=== PATIENT | male | born 1945 | race Caucasian/White ===

== ENCOUNTER 2022-08-04 15:43 | Emergency (ER) | payer OTHER ==
[2022-08-04 16:21] LABS: Absolute Lymphocytes (CBC) 0.6 K/uL (0.7-4.9); Hematocrit 31.3 % (39.6-49.0); Lymphocytes % 13.4 % (15.3-44.8); MCV 83.6 fL (80-100); MPV 6.2 fL (7.6-11.3); RBC Red Blood Cell Count 3.75 M/uL (4.33-5.43)
[2022-08-04 16:24] LABS: Protime INR 1.2
[2022-08-04 16:55] LABS: Albumin 2.7 g/dL (3.4-5.0); Bilirubin Direct 0.2 mg/dL (0-0.2); Bilirubin Total 0.4 mg/dL (0.2-1.0); Protein, Total 6.9 g/dL (6.4-8.2)
[2022-08-04 17:00] LABS: Potassium 3.7 mmol/L (3.5-5.1); Troponin High Sensitivity 5.2 pg/mL (<58.9)
--- NOTE | 2022-08-04 17:12 | RAD REPORT ---
EXAM DESCRIPTION: RAD - Chest Single View - 08/04/2022 4:59 pm CLINICAL HISTORY: CHEST PAIN COMPARISON: Two view chest April 2011 TECHNIQUE: AP portable chest image was obtained 08/04/2022 4:59 pm . FINDINGS: Large mass density fills the right apex. There is elevation of the right hemidiaphragm. Ro unded mass density in the mid right chest has a central lucency that could be cavitary or necrotic ti ssue. Snow finding could be mass density or entrapped typical fluid. Findings are concerning for adi gnant process. This would be an atypical simple pneumonia presentation. Underlying fibrotic lung changes are present. Left lung field and lower right lung field are clear. Failure and volume overload are not suspected. Heart and vasculature are normal. No pneumothorax or l marcio base pleural effusion. Posterior right fifth rib is not well defined but this may be due to the d ensity of the right apex process. No acute aortic findings suspected. IMPRESSION: Mid and right upper lung field mass densities are present concerning for malignancy rath er than simple pneumonia. Follow-up contrast-enhanced CT chest imaging is recommended.
--- NOTE | 2022-08-04 18:25 | RAD REPORT ---
EXAM DESCRIPTION: CT - Chest Abdomen Pelvis W Cont - 08/04/2022 5:59 pm CLINICAL HISTORY: chest pain, abdominal pain COMPARISON: Chest Single View dated 08/04/2022 TECHNIQUE: Following dynamic enhancement using 100 milliliters nonionic IV contrast, axial imaging o f the chest, abdomen and pelvis was performed. Biphasic technique was utilized through the abdomen. No oral contrast was administered. All CT scans are performed using dose optimization technique as appropriate and may include automated exposure control or mA/KV adjustment according to patient size. FINDINGS: A large 10-12 centimeter sized malignant mass fills the right upper lobe. Portions of the right upper lobe that are not actual tumor mass represent alveolar opacification from fluid or possib ly additional tumor. Right upper lobe bronchus is occluded. In the mid right lung field a 9 x 7 centi meter extension of the right upper lobe malignancy is present with central necrotic cavity. An air-fl uid level is present within the cavity. The mass surrounds the right mainstem bronchus and right pulmonary artery. Tumor extends into the med iastinum. There are multiple abnormal mediastinal lymph nodes. In the posterior upper chest the mass invades the chest wall with bone destructive changes in the posterior right fifth rib and the right p osterior body, pedicle and transverse process of T5. No tumor extension into the central canal identi fiable. No metastatic pulmonary nodules present. No pleural effusion, pleural thickening or pneumothorax. No acute aortic finding. No pulmonary artery occlusion or embolus. The contralateral left hilar lymphade nopathy. No axillary lymphadenopathy. No liver or adrenal metastatic disease. Spleen, pancreas, gallbladder and biliary tree show no suspicious findings. Symmetric renal function is seen with no mass or hydronephrosis. No stomach or small bowel abnormality. The ileocecal valve is normal in appearance. There is left-jeremy ed sigmoid diverticulosis without diverticulitis. Moderately large stool volume fills the colon from cecum to mid descending colon. The tip of the cecum has a thickened nodular and lobulated soft tissue appearance is not typical for stool. Findings are concerning for a malignancy in the tip of the cecu m. No abnormal adjacent lymphadenopathy. Degenerative changes are present but no additional pathologic bone changes identifiable. An infrarenal abdominal aortic aneurysm is present 4.6 cm AP x 4.4 cm TR. Mural thrombus is seen candace g the left lateral aspect of the aneurysm occupying approximately 1/3 of the volume. No centrally dis placed calcifications. An acute aortic process is not seen. IMPRESSION: Very large malignant mass filling the mid and upper right hemithorax with mediastinal an d posterior chest wall invasion. Inferior aspect of the mass has a large cavitary component. Chest wall invasion causes bone destructi on in the posterior right fifth rib as well as the right posterior body, pedicle and transverse proce ss of T5. Thickened irregular nodular soft tissue in the cecum suspicious for colon malignancy. No liver or adrenal metastatic disease. No additional pulmonary masses. No abdominal lymphadenopathy, omental thickening or other findings of carcinomatosis.
--- NOTE | 2022-08-04 20:34 | EDPHYS ---
Physician Documentation [facility] Name: Gene Fontanez Age: 76 yrs Sex: Male : 1945 Arrival Date: 08/04/2022 Time: 15:47 Bed 24 Private MD: ED Physician Lloyd Fish HPI: 08/04 16:02 This 76 yrs old Male presents to ER via EMS with complaints of Chest Pain. cp 16:02 The patient or guardian reports chest pain that is located primarily in the anterior cp chest wall, bilaterally. 16:02 Onset: 10 day(s) ago. cp 16:02 Duration: The patient or guardian reports multiple episodes, that wax and wane. cp 16:02 Associated signs and symptoms: Pertinent positives: shortness of breath, approximate cp 100 lb weight loss since beginning of this year, Pertinent negatives: diaphoresis, lower extremity pain, lower extremity swelling, syncope, fever. 16:02 The chest pain is described as intermittent, sharp. cp Historical: - Allergies: 15:48 No Known Allergies; ld1 - PMHx: 15:48 None; ld1 - PSHx: 15:48 None; ld1 - Immunization history:: Adult Immunizations up to date, Client reports receiving the 2nd dose of the Covid vaccine. - Social history:: Smoking status: Patient denies any tobacco usage or history of. Patient/guardian denies using alcohol. ROS: 16:02 Constitutional: Negative for body aches, chills, fever, poor PO intake. cp 16:02 Cardiovascular: Positive for chest pain, Negative for palpitations. cp 16:02 Respiratory: Positive for shortness of breath. 16:02 Abdomen/GI: Positive for abdominal pain, of the epigastric area. cp 16:02 Eyes: Negative for injury, pain, redness, and discharge. cp 16:02 ENT: Negative for drainage from ear(s), ear pain, sore throat, difficulty swallowing, difficulty handling secretions. 16:02 Neuro: Negative for altered mental status, headache, numbness, weakness. cp 16:02 All other systems are negative. Exam: 16:02 ECG was reviewed by the Attending Physician. cp 16:07 Constitutional: The patient appears in no acute distress, alert, awake, cp non-diaphoretic, non-toxic, well developed, well nourished. 16:07 Head/Face: Normocephalic, atraumatic. cp 16:07 Eyes: Periorbital structures: appear normal, Conjunctiva: normal, no exudate, no injection, Sclera: no appreciated abnormality, Lids and lashes: appear normal, bilaterally. 16:07 ENT: External ear(s): are unremarkable, Nose: is normal, Mouth: Lips: moist, Oral mucosa: pink and intact, moist, Posterior pharynx: Airway: no evidence of obstruction, patent. 16:07 Neck: ROM/movement: is normal, is supple, without pain, no range of motions limitations. 16:07 Chest/axilla: Inspection: normal, Palpation: is normal, no crepitus, no tenderness. 16:07 Cardiovascular: Rate: normal, Rhythm: regular, Pulses: Pulses are 2+ in right radial artery and left radial artery. Edema: is not appreciated, JVD: is not appreciated. 16:07 Respiratory: the patient does not display signs of respiratory distress, Respirations: normal, no use of accessory muscles, no retractions, labored breathing, is not present, Breath sounds: decreased breath sounds, that are moderate, are heard in the right posterior upper lobe, stridor, is not appreciated, wheezing: is not appreciated. 16:07 Abdomen/GI: Inspection: abdomen appears normal, Bowel sounds: active, all quadrants, Palpation: abdomen is soft and non-tender, in all quadrants. 16:07 Back: pain, that is mild, ROM is normal. 16:07 Skin: cellulitis, is not appreciated, no rash present. 16:07 Neuro: Orientation: to person, place \\T\\ time. Mentation: is normal, Motor: moves all fours, strength is normal, Sensation: is normal. Vital Signs: 15:47 Weight 68.04 kg; Height 6 ft. 2 in. (187.96 cm); Pain 0/10; ld1 16:09 BP 111 / 64; Pulse 88; Resp 27; Pulse Ox 95% on R/A; ld1 16:53 BP 113 / 50; Pulse 94; Resp 30; Pulse Ox 98% on R/A; ld1 17:57 BP 131 / 88; Pulse 95; Resp 23; Pulse Ox 98% on R/A; ld1 18:41 BP 128 / 68; Pulse 88; Resp 22; Pulse Ox 100% ; ld1 20:52 BP 116 / 55; Pulse 100; Resp 22 S; Pulse Ox 100% on R/A; bb 15:47 Body Mass Index 19.26 (68.04 kg, 187.96 cm) ld1 MDM: 15:58 Patient medically screened. cp 16:00 Differential diagnosis: acute myocardial infarction, acute pericarditis, chest wall cp pain, pleurisy, pneumonia, pneumothorax, pulmonary embolus, stable angina, thoracic aortic disection, unstable angina, lung carcinoma. 20:11 Data reviewed: vital signs, nurses notes, lab test result(s), EKG, radiologic studies, cp CT scan, plain films. Physician consultation: Geraldo Duque MD was called at 20:12, was contacted at 20:12, regarding patient's condition, and will see patient in office. 20:30 ED course: VSS. Pain improved. Patient appears non-toxic and no signs of respiratory cp distress. Will discharge to home for continued monitoring. 08/04 15:49 Order name: Basic Metabolic Panel; Complete Time: 17:01 [facility] 08/04 17:01 Interpretation: Normal except: CL 110; BUN 19. cp 08/04 15:49 Order name: CBC with Diff; Complete Time: 16:30 [facility] 08/04 16:31 Interpretation: Normal except: RBC 3.75; HGB 10.3; HCT 31.3; RDW 17.3; MPV 6.2; RIRI% cp 75.5; LYM% 13.4; LYMA 0.6. 08/04 15:49 Order name: Troponin HS; Complete Time: 17:01 [facility] 08/04 16:00 Order name: BNP; Complete Time: 17:01 08/04 17:01 Interpretation: Abnormal: NT PRO-BNP 683. cp 08/04 16:00 Order name: LFT's; Complete Time: 17:01 08/04 16:00 Order name: Lipase; Complete Time: 17:01 08/04 15:49 Order name: XRAY Chest (1 view); Complete Time: 17:14 [facility] 08/04 15:49 Order name: EKG; Complete Time: 15:50 [facility] 08/04 15:49 Order name: Cardiac monitoring; Complete Time: 16:09 [facility] 08/04 16:00 Order name: PT-INR; Complete Time: 16:30 cp 08/04 16:00 Order name: Ptt, Activated; Complete Time: 16:30 cp 08/04 17:33 Order name: Chest Abdomen Pelvis W Cont; Complete Time: 18:30 EDMS 08/04 18:33 Interpretation: Report reviewed. cp 08/04 19:09 Order name: COVID-19 SARS RT PCR (Document "Date of Onset" if Symptomatic); Complete bb Time: 20:08/04 15:49 Order name: EKG - Nurse/Tech; Complete Time: 16: ld1 08/04 15:49 Order name: IV Saline Lock; Complete Time: 16: ld1 08/04 15:49 Order name: Labs collected and sent; Complete Time: 16: ld08/04 15:49 Order name: O2 Per Protocol; Complete Time: 16: ld08/04 15:49 Order name: O2 Sat Monitoring; Complete Time: 16: ld EC:02 Rate is 90 beats/min. Rhythm is regular. WA interval is normal. QRS interval is normal. cp QT interval is normal. T waves are Inverted in leads aVL, aVR. Interpreted by me. Reviewed by me. Administered Medications: No medications were administered Disposition: 08/05 08:45 Co-signature as Attending Physician, Lloyd Fish DO I was immediately available on-site ms3 in the Emergency Department for consultation in the care of the patient. . Disposition Summary: 08/04/22 20:34 Discharge Ordered Location: Home cp Problem: new cp Symptoms: have improved cp Condition: Stable cp Diagnosis - Malignant neoplasm of unspecified part of right bronchus or lung cp - Malignant neoplasm of colon, unspecified cp Followup: cp - With: Geraldo Duque MD - When: 1 - 2 days - Reason: lung mass Followup: cp - With: Jaime Garcia MD - When: 2 - 3 days - Reason: colon mass Discharge Instructions: - Discharge Summary Sheet cp - Colonoscopy, Adult cp - Colorectal Cancer cp - Lung Cancer cp Forms: - Medication Reconciliation Form cp - Thank You Letter cp - Antibiotic Education cp - Prescription Opioid Use cp Signatures: Dispatcher [employer] EDMS Ezra Gill PA PA cp Sims, Marcus, DO DO ms3 Bailey Carrera RN RN ld1 Corrections: (The following items were deleted from the chart) 20:51 08/04 20:12 ED course: VSS. Pain improved. Patient appears non-toxic and no signs of cp respiratory distress. Will discharge to home for continued monitoring. cp
--- NOTE | 2022-08-04 20:34 | ER ---
Nurse's Notes [facility] Name: Gene Fontanez Age: 76 yrs Sex: Male : 1945 Arrival Date: 08/04/2022 Time: 15:47 Bed 24 Private MD: Diagnosis: Malignant neoplasm of unspecified part of right bronchus or lung;Malignant neoplasm of colon, unspecified Presentation: 08/04 15:47 Chief complaint: Patient states: Chest pain on and off for 10 days. Denies chest pain ld1 upon arrival. Coronavirus screen: At this time, the client does not indicate any symptoms associated with coronavirus-19. Ebola Screen: No symptoms or risks identified at this time. Initial Sepsis Screen: Does the patient meet any 2 criteria? No. Patient's initial sepsis screen is negative. Does the patient have a suspected source of infection? No. Patient's initial sepsis screen is negative. Risk Assessment: Do you want to hurt yourself or someone else? Patient reports no desire to harm self or others. Onset of symptoms was August 04, 2022. 15:47 Method Of Arrival: EMS: [facility] ld1 15:47 Acuity: ABHILASH 3 ld1 Triage Assessment: 15:48 General: Appears in no apparent distress. comfortable, Behavior is calm, cooperative, ld1 appropriate for age. Pain: Complains of pain in chest Pain does not radiate. Pain currently is 0 out of 10 on a pain scale. at worst was 8 out of 10 on a pain scale. Quality of pain is described as throbbing. EENT: No signs and/or symptoms were reported regarding the EENT system. Neuro: Level of Consciousness is awake, alert, obeys commands, Oriented to person, place, time, situation. Cardiovascular: Capillary refill < 3 seconds Patient's skin is warm and dry. Respiratory: Airway is patent Respiratory effort is even, unlabored. GI: Abdomen is flat, non-distended. : No signs and/or symptoms were reported regarding the genitourinary system. Derm: No signs and/or symptoms reported regarding the dermatologic system. Musculoskeletal: No signs and/or symptoms reported regarding the musculoskeletal system. Historical: - Allergies: 15:48 No Known Allergies; ld1 - PMHx: 15:48 None; ld1 - PSHx: 15:48 None; ld1 - Immunization history:: Adult Immunizations up to date, Client reports receiving the 2nd dose of the Covid vaccine. - Social history:: Smoking status: Patient denies any tobacco usage or history of. Patient/guardian denies using alcohol. Screenin:10 Abuse screen: Denies threats or abuse. Denies injuries from another. Nutritional ld1 screening: No deficits noted. Tuberculosis screening: No symptoms or risk factors identified. Fall Risk None identified. Assessment: 16:09 Reassessment: See triage assessment. ld1 17:57 Reassessment: Patient appears in no apparent distress at this time. Patient and/or ld1 family updated on plan of care and expected duration. Pain level reassessed. Patient is alert, oriented x 3, equal unlabored respirations, skin warm/dry/pink. 20:51 Reassessment: Patient is alert, oriented x 3, equal unlabored respirations, skin bb warm/dry/pink. pt verbalized understanding of and agrees to plan of care discharge instructions given to pt and family. Vital Signs: 15:47 Weight 68.04 kg; Height 6 ft. 2 in. (187.96 cm); Pain 0/10; ld1 16:09 BP 111 / 64; Pulse 88; Resp 27; Pulse Ox 95% on R/A; ld1 16:53 BP 113 / 50; Pulse 94; Resp 30; Pulse Ox 98% on R/A; ld1 17:57 BP 131 / 88; Pulse 95; Resp 23; Pulse Ox 98% on R/A; ld1 18:41 BP 128 / 68; Pulse 88; Resp 22; Pulse Ox 100% ; ld1 20:52 BP 116 / 55; Pulse 100; Resp 22 S; Pulse Ox 100% on R/A; bb 15:47 Body Mass Index 19.26 (68.04 kg, 187.96 cm) ld1 ED Course: 15:47 Patient arrived in ED. ld1 15:48 Triage completed. ld1 15:48 Arm band placed on right wrist. ld1 15:52 Ezra Gill PA is PHCP. cp 15:52 Lloyd Fish DO is Attending Physician. cp 16:09 No provider procedures requiring assistance completed. Maintain EMS IV. Dressing ld1 intact. Good blood return noted. Site clean \T\ dry. Gauge \T\ site: 20G RFA. 16:10 Patient has correct armband on for positive identification. Placed in gown. Bed in low ld1 position. Call light in reach. Side rails up X2. Client placed on continuous cardiac and pulse oximetry monitoring. NIBP monitoring applied. cardiac monitor technician on. Pulse ox on. NIBP on. Door closed. Noise minimized. Warm blanket given. 16:10 Patient maintains SpO2 saturation greater than 95% on room air. ld1 16:53 Bailey Carrera, RN is Primary Nurse. ld1 17:01 XRAY Chest (1 view) In Process Unspecified. EDMS 18:01 Chest Abdomen Pelvis W Cont In Process Unspecified. EDMS 20:32 Geraldo Duque MD is Referral Physician. cp 20:37 Jaime Garcia MD is Referral Physician. cp 20:53 IV discontinued, intact, bleeding controlled, No redness/swelling at site. Pressure bb dressing applied. Administered Medications: No medications were administered Medication: 16:10 VIS not applicable for this client. ld1 Outcome: 20:34 Discharge ordered by MD. cp 20:52 Discharged to home ambulatory, with family. bb 20:52 Condition: stable 20:52 Discharge instructions given to patient, family, Instructed on discharge instructions, follow up and referral plans. Demonstrated understanding of instructions, follow-up care. 20:53 Patient left the ED. bb Signatures: Dispatcher [employer] Светлана Naranjo RN RN Ezra Webber PA PA Bailey Couch, RN RN ld1
--- NOTE | 2022-08-06 13:11 | EKG ---
Test Date: 2022-08-04 Test Time: 15:55:02 Corporation Lawyer: TAMMY MEASUREMENT RESULTS: Intervals: Rate: 90 NM: 174 QRSD: 86 QT: 360 QTc: 440 [place]line: P: 81 NM: 174 QRS: 85 T: 77 INTERPRETIVE STATEMENTS: Normal sinus rhythm Right atrial enlargement Borderline ECG No previous ECG available for comparison Electronically Signed On 08-06-22 13:06:27 CDT by Israel Vazquez
[2022-08-07 13:16] VITALS: O2SAT 100
[2022-08-07 13:18] VITALS: BP 116/55
== END 2022-08-04 20:53 | disposition home or self-care (01) ==
LOC: ER 15:43
DX: C34.91 Malignant neoplasm of unspecified part of right bronchus or lung (principal); C18.9 Malignant neoplasm of colon, unspecified; Z20.822 Contact with and (suspected) exposure to COVID-19
CPT/HCPCS: 93005; 85025; 80048; 36415; 85610; 80076; 85730; 84484; 83690; 83880; 71260; 74177; 71045; 99285; U0003; Q9967

== ENCOUNTER 2022-08-12 06:35 | Day surgery (SDC) | payer OTHER ==
[2022-08-08 11:33] LABS: SARS-CoV-2 Antigen Rapid Res Negative (Negative)
[2022-08-12] MEDS ORDERED: Ringers Lactate 1,000 ML IV ONE (06:57)
[2022-08-12] MEDS ORDERED: Phenylephrine HCl 10 MG/ML 1 ML VIAL ONE (07:15)
[2022-08-12] MEDS ORDERED: GLYCOPYRROLATE 0.2 MG/ML SYR ONE (07:18)
[2022-08-12] MEDS ORDERED: LIDOCAINE 4% TOP SOLUTION MM ONE ×2 (11:57→12:35)
[2022-08-12] MEDS ORDERED: LIDOCAINE 1% MPF 2 ML AMPULE ONE (12:21)
[2022-08-12] MEDS ORDERED: FENTANYL CITR 100 MCG/2 ML ONE (12:21)
[2022-08-12] MEDS ORDERED: propofoL 200 MG/20 ML VIAL IV ONE (12:21)
--- NOTE | 2022-08-12 14:19 | RAD REPORT ---
EXAM DESCRIPTION: RAD - Chest Single View - 08/12/2022 2:14 pm CLINICAL HISTORY: S/P BRONCH Chest pain. COMPARISON: Chest Single View dated 08/04/2022; CHEST PA AND LAT 2 VIEW dated 04/16/2011; CHEST PA AND LAT 2 VIEW dated 05/13/2002; Chest Abdomen Pelvis W Cont dated 08/04/2022 FINDINGS: Portable technique limits examination quality. Large right upper lobe mass is noted. The included lung dodge show no evidence of a pneumothorax. Raine ngs are emphysematous.The heart is upper limit normal.
[2022-08-12 14:51] VITALS: BP 100/48; TEMP 97.4; O2SAT 101
--- NOTE | 2022-09-03 12:41 | P.OP ---
Date of Service: 08/12/22 (Bronchoscopy with right upper lobe endobronchial biopsy via brushings and lavage) Findings and Operative Technique Patient is 76 years of age evaluated by me with a large mediastinal mass cavitary area in the right upper lobe active smoker has the reason for bronchoscopy narrative report after obtaining informed consent from the very patient he was premedicated by anesthesia findings normal vocal cords normal trachea normal Zenaida normal left-sided anatomy patient's right upper lobe was completely occluded with a pearly white lesion multiple biopsies were done some tumor in the airway as well as along the mainstem bronchus otherwise normal lower lobe bronchi were noticed she tolerated the procedure very well did not experience any arrhythmias hypotension 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
== END 2022-08-12 15:00 | disposition home or self-care (01) ==
LOC: OR 06:35
PROVIDERS: ATTEND Internal Medicine Sleep Medicine
PROC: 0BDC8ZX Extraction of Right Upper Lung Lobe, Via Natural or Artificial Opening Endoscopic, Diagnostic (ICD-10-PCS; principal; 2022-08-12 08:00)
DX: C34.11 Malignant neoplasm of upper lobe, right bronchus or lung (principal); Z20.822 Contact with and (suspected) exposure to COVID-19; Z87.891 Personal history of nicotine dependence
CPT/HCPCS: 36415; 88108 ×2; 88305 ×2; 71045; 76000; 87811; 31625; J2704; J2370; J3010; J7120